=== PATIENT | male | born 1990 | race African-American/Black ===

== ENCOUNTER 2018-12-17 00:21 | Emergency (ER) | payer MEDICAID ==
[~2018-12-17] VITALS: Ht 182.9 cm; Wt 89.0 kg
[2018-12-17] MEDS ORDERED: SODIUM CHLORIDE 0.9% 1,000 ML IV ONE (01:05)
[2018-12-17] MEDS ORDERED: KETOROLAC 30MG/ML VIAL IV STA (01:05)
[2018-12-17] MEDS ORDERED: ONDANSETRON HCL 4MG/2ML INJ IV STA ×2 (01:05→05:09)
[2018-12-17 01:31] LABS: CLARITY URINE CLEAR (CLEAR); COLOR URINE YELLOW (YELLOW); KETONES URINE NEGATIVE (NEGATIVE); LEUKOCYTE ESTERASE URINE NEGATIVE (NEGATIVE); NITRITE URINE NEGATIVE (NEGATIVE); OCCULT BLOOD URINE NEGATIVE (NEGATIVE); PROTEIN URINE NEGATIVE (NEGATIVE); SPECIFIC GRAVITY URINE 1.016 (1.005-1.030)
[2018-12-17 01:35] LABS: BASOPHILS % 0.5 % (0.0-2.0); CHLORIDE 105 mEq/L (98-107); EOSINOPHILS % 2.1 % (0.0-5.0); HEMATOCRIT. 41.8 % (42.0-52.0); HEMOGLOBIN. 13.9 g/dL (14.0-18.0); LYMPHOCYTES % 11.8 % (20.0-50.0); MEAN CORPUSCULAR HEMOGLOBIN 27.3 pg (28.0-32.0); MEAN CORPUSCULAR VOLUME 81.9 fL (80.0-94.0); MEAN PLATELET VOLUME 8.4 fl (7.4-10.4); MONOCYTES % 11.8 % (2.0-8.0); NEUTROPHILS % 73.8 % (40.0-76.0); PLATELET 223 x1000/uL (130-400); RED BLOOD CELL COUNT 5.11 mill/uL (4.7-6.1); RED CELL DISTRIBUTION WIDTH 13.1 % (11.6-14.6)
[2018-12-17] MEDS ORDERED: AZITHROMYCIN 500 MG TABLET PO ONE (05:15)
[2018-12-17] MEDS ORDERED: CEFTRIAXONE SODIUM 250 MG/VIAL IM ONE (05:15)
[2018-12-17 05:58] VITALS: BP 130/75
[2018-12-19 04:15] LABS: CHLAMYDIA TRACHOMATIS NAA Negative (Negative); NEISSERIA GONORRHOEAE NAA Negative (Negative)
== END 2018-12-17 07:07 | disposition home or self-care (01) ==
LOC: ER 00:21
DX: N45.1 Epididymitis (principal); N50.9 Disorder of male genital organs, unspecified
CPT/HCPCS: 36415; 74176; 76870; 80053; 81003; 85025; 87086; 87491; 87591; 93976; 96372; 96374; 96375; 96376; 99284; J0696; J1885; J2405; J7030